=== PATIENT | male | born 1940 | race Caucasian/White ===

== ENCOUNTER 2019-01-29 18:55 | Emergency (ER) | payer OTHER ==
[2019-01-29] MEDS ORDERED: LIDOCAINE 2% JELLY 20 ML (UROJECT) ONE (19:08)
--- NOTE | 2019-01-29 19:13 | EDPHY ---
HPI/HX/ROS/PE/MDM Narrative: CHIEF COMPLAINT: Inability to urinate HPI: The patient is a 78-year-old male history of prostate cancer. On , approximately 48 hr ago, the patient underwent a Urolift procedure with Dr. Gallagher. Mirza catheter was placed which has been draining well up until today. The patient noted some increased hematuria followed by complete cessation of urine flow this afternoon. This has resulted in significant suprapubic discomfort and urinary urgency. No fever. The patient called his urologist who referred him to the ER. REVIEW OF SYSTEMS: Aside from elements discussed in the HPI, a comprehensive 10-point review of systems was reviewed and is negative. PMH: Prostate cancer, recent urologic procedure. SOCIAL HISTORY: . Originally from [place]. PHYSICAL EXAM: General:Patient is alert, in no acute distress. Appears well but uncomfortable and is pacing the room.normal bilaterally. Cardiovascular: Regular rate and rhythm. Strong peripheral pulses. Normal cap refill. Abdomen: Suprapubic fullness is noted. : Uncircumcised penis is normal to inspection and foreskin is easily retractable. Mirza catheter is in place in the urethra with no significant blood around the meatus. Testes are normal. Skin: Normal color. No rash. Warm and dry. Neuro: Oriented x3. Normal motor function. Normal sensory function. ED Course: The portion so Mirza catheter was irrigated by the nurse which resulted in some mild flow of urine. The patient then went had a bowel movement which then seemed to fully resolve his urinary retention. On re-evaluation, the patient's Mirza appears to be operating normally and there is red tinged urine in the bag. The patient feels much better and would like to go home. We discussed the fact that the catheter may clogged again in which case he would need to represent to the emergency department. He declined further observation. - Data Points Medications Given: Discontinued Medications Lidocaine (Uroject Lidocaine 2% Jelly) 20 ml UR EDNOW ONE Stop: 01/29/19 19:15 Last Admin: 01/29/19 19:33 Dose: Not Given General Time Seen by Provider: 01/29/19 19:02 Initial Vital Signs: Initial Vital Signs Temperature (C) 37.2 C 01/29/19 19:10 Heart Rate 73 01/29/19 19:10 Respiratory Rate 16 01/29/19 19:10 O2 Sat (%) 95 01/29/19 19:10 O2 Delivery Mode Room Air Allergies/Adverse Reactions: No Known Allergies Allergy (Unverified 01/29/19 19:09) Home Medications: Medication Instructions Recorded Tamsulosin HCl [Flomax 0.4 MG (*)] 01/29/19 Departure - Departure Disposition: Home, Routine, Self-Care Clinical Impression: Acute urinary retention Condition: Good Instructions: Urinary Retention in Men (ED) Additional Instructions: Follow-up with urologist on Thursday as scheduled. Return to the emergency department for severe pain, fever or inability for urine to drain anterior leg bag. Referrals: Keegan Gallagher MD [Primary Care Provider] - As per Instructions
[2019-01-29] MEDS ORDERED: LIDOCAINE 2% JELLY 20 ML (UROJECT) UR ONE (19:14)
[2019-01-29 19:40] VITALS: BP 143/98
== END 2019-01-29 19:44 | disposition home or self-care (01) ==
LOC: CED 18:55
PROC: 3E1K78Z Irrigation of Genitourinary Tract using Irrigating Substance, Via Natural or Artificial Opening (ICD-10-PCS; principal; 2019-01-29)
DX: R33.9 Retention of urine, unspecified (principal); Z85.46 Personal history of malignant neoplasm of prostate; Z96.0 Presence of urogenital implants
CPT/HCPCS: 99282-ER

== ENCOUNTER 2019-02-05 15:23 | Emergency (ER) | payer OTHER ==
--- NOTE | 2019-02-05 15:51 | EDPHY ---
H & P Stated Complaint: cath not draining well Time Seen by Provider: 02/05/19 15:28 HPI/ROS: CHIEF COMPLAINT: Mirza catheter not draining while HISTORY OF PRESENT ILLNESS: This is a 78-year-old male with remote history of prostate cancer. On 01/27/2019 he underwent a Urolift procedure by Dr. Gallagher. He had a Mirza catheter placed at that time. On the evening of 01/29 he was seen in the emergency department with decreased urine drainage, his catheter was irrigated, he had a bowel movement with subsequent drainage of urine and he was able to be discharged. His catheter was removed in the doctor's office the following week but he was unable to void independently. He was seen at [facility] on a 3 way catheter was reportedly placed. This catheter was changed yesterday in his urologist's office. Throughout all of this he has had persistent hematuria. He presents today concerned because urinary drainage is less than expected. He is not having abdominal pain. His urine has been persistently read or burgundy in color. He has occasionally passed a visible clot. He is not having pain with urination. No fever. He does not take anticoagulants. 2 bowel movements today, no constipation. He is taking clindamycin. REVIEW OF SYSTEMS: A ten system review of systems was performed and is negative with the exception of the items mentioned in the HPI. Past medical history: Prostate cancer Past surgical history: Social history: He is . 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 No tobacco use. He drinks wine socially. General Appearance: Alert. Vital signs reviewed. Focused exam. Neck: No lymphadenopathy, supple. Respiratory: Lungs are clear to auscultation; no wheezes, rales, or rhonchi. Cardiovascular: Regular rate and rhythm; no murmur, rub, or gallop. Gastrointestinal: Abdomen is soft and nontender, no masses or organomegaly, bowel sounds normal. : Circumcised male. Bilaterally descended testes, nontender. Catheter at the meatus, no blood. Leg bag has dark red urine. Skin: Warm and dry, no rashes on exposed skin, normal color. Back: No CVAT. Extremities: No lower extremity edema, no calf tenderness or swelling. Neurological: Alert and oriented. Moving all four extremities easily and equally. Psychiatric: Normal affect. - Personal History Current Tetanus Diphtheria and Acellular Pertussis (TDAP): Yes - Medical/Surgical History Hx Asthma: No Hx Chronic Respiratory Disease: No Hx Diabetes: No Hx Cardiac Disease: No Hx Renal Disease: No Hx Cirrhosis: No Hx Alcoholism: No Hx HIV/AIDS: No Hx Splenectomy or Spleen Trauma: No Other PMH: prostate CA 8 years ago. - Social History Smoking Status: Never smoked Constitutional: Initial Vital Signs Temperature (C) 37.2 C 02/05/19 15:46 Heart Rate 75 02/05/19 15:46 Respiratory Rate 16 02/05/19 15:46 Blood Pressure 173/95 H 02/05/19 15:46 O2 Sat (%) 98 02/05/19 15:46 O2 Delivery Mode Room Air Allergies/Adverse Reactions: No Known Allergies Allergy (Verified 02/05/19 15:49) Home Medications: Medication Instructions Recorded Tamsulosin HCl [Flomax 0.4 MG (*)] 01/29/19 Medical Decision Making ED Course/Re-evaluation: Emergency department nursing staff irrigated his catheter copiously. We do not have a 3 way catheter at this facility. However, the patient felt comfortable that his catheter was draining well after was irrigated. He feels that he can return home and does not desire any additional treatment. His abdomen remains soft and nontender. He is scheduled to have his catheter removed in 2 days. Differential Diagnosis: I considered a differential diagnosis that includes but is not limited to catheter malfunction, clogged catheter, urinary retention, UTI. Departure - Departure Disposition: Home, Routine, Self-Care Clinical Impression: Mirza catheter problem Qualifiers: Encounter type: initial encounter Qualified Code(s): T83.9XXA - Unspecified complication of genitourinary prosthetic device, implant and graft, initial encounter Condition: Good Instructions: Urinary Retention in Men (ED), Hematuria (ED) Additional Instructions: If your catheter stops draining he, you likely have a blood clot blocking it. As you know, you should come to the emergency department if that happens. Follow up with Dr. Gallagher as planned this coming week. Referrals: aMnuel Paris MD [Primary Care Provider] - As per Instructions Keegan Gallagher MD [Medical Doctor] - As per Instructions
[2019-02-05 17:28] VITALS: BP 158/66
== END 2019-02-05 17:17 | disposition home or self-care (01) ==
LOC: CED 15:23
PROC: 3E1K38Z Irrigation of Genitourinary Tract using Irrigating Substance, Percutaneous Approach (ICD-10-PCS; principal; 2019-02-05)
DX: T83.098A Other mechanical complication of other urinary catheter, initial encounter (principal); Y73.3 Surgical instruments, materials and gastroenterology and urology devices (including sutures) associated with adverse incidents; Z85.46 Personal history of malignant neoplasm of prostate
CPT/HCPCS: 99283-ER